=== PATIENT | male | born 1985 | race American Indian/Alaskan Native ===

== ENCOUNTER 2018-08-25 19:46 | Emergency (ER) | payer SELFPAY ==
[2018-08-25 20:18] LABS: Basophils # (Auto) 0.1 K/mm3 (0.0-0.1); Basophils % (Auto) 1.3 % (0.0-1.8); Eosinophils % (Auto) 0.6 % (0.0-4.3); Hematocrit 45.8 % (35.5-45.6); Hemoglobin 15.8 gm/dl (11.8-15.2); Lymphocytes % (Auto) 34.1 % (13.4-35.0); Mean Corpuscular HGB Conc 34 % (32-34); Mean Corpuscular Hemoglobin 30 pg (28-32); Mean Corpuscular Volume 87 fl (84-94); Monocytes # (Auto) 0.6 K/mm3 (0.0-0.8); Monocytes % (Auto) 10.9 % (0.0-7.3); Platelet Count 265 K/mm3 (140-440); Red Blood Count 5.24 M/mm3 (3.65-5.03); Red Cell Distribution Width 14.3 % (13.2-15.2)
[2018-08-25 20:29] LABS: Bilirubin,Urine NEG (Negative); Blood,Urine NEG (Negative); Color,Urine Yellow (Yellow); Mucus,Urine 1+ /HPF; Protein,Urine <15 mg/dL mg/dL (Negative); Urobilinogen,Urine < 2.0 mg/dL (<2.0)
[2018-08-25 20:40] LABS: Albumin 4.5 g/dL (3.9-5); Calcium 9.6 mg/dL (8.4-10.2)
[2018-08-25] MEDS ORDERED: ALUM-MAG HYDROX-SIMETH 200-200-20MG/5ML PO STA (22:15)
[2018-08-25] MEDS ORDERED: LIDOCAINE VISCOUS 2% PO STA (22:18)
--- NOTE | 2018-08-25 23:31 | Emergency Department Report ---
ED General Adult HPI - General Chief complaint: Sore Throat Stated complaint: THROAT PAIN/ACID REFLUX Time Seen by Provider: 08/25/18 22:00 Source: patient Mode of arrival: Ambulatory Limitations: No Limitations - History of Present Illness Initial comments: 33-year-old Haitian female with history of acid reflux been seen in the [facility] and had a scope of his throat and was found to have esophageal reflux changes to his pharynx and was started on Zantac. States he's been taking Zantac off and on for several months and is losing its effectiveness since he is having some issue landing flat sleeping because of the reflux. States refluxes also beginning to affect his work because he has call out of work because of stomach pains and and nausea as well. He reported no fever, chills, sweats, hemoptysis, hematemesis, hematochezia. No diarrhea or constipation. Does get painful areas off and on -: Gradual, week(s), month(s) Consistency: constant Improves with: none Worsens with: eating, movement Associated Symptoms: loss of appetite, nausea/vomiting. denies: confusion, chest pain, cough, shortness of breath, syncope, weakness - Related Data Previous Rx's Medication Instructions Recorded Last Taken Type Amoxicillin [Amoxicillin TAB] 875 mg PO BID #20 tablet 08/25/18 Unknown Rx Clarithromycin [Biaxin] 500 mg PO BID #20 tab 08/25/18 Unknown Rx Lidocaine Viscous 2% 15 ml MM Q4H #240 udc 08/25/18 Unknown Rx Omeprazole 40 mg PO DAILY #30 capsule. 08/25/18 Unknown Rx Allergies Allergy/AdvReac Type Severity Reaction Status Date / Time No Known Allergies Allergy Verified 08/25/18 19:52 ED Review of Systems ROS: Stated complaint: THROAT PAIN/ACID REFLUX Other details as noted in HPI Comment: All other systems reviewed and negative ED Past Medical Hx - Past Medical History Previous Medical History?: Yes Hx GERD: Yes - Surgical History Past Surgical History?: No - Social History Smoking Status: Never Smoker Substance Use Type: None - Medications Home Medications: Home Medications Medication Instructions Recorded Confirmed Last Taken Type Amoxicillin [Amoxicillin TAB] 875 mg PO BID #20 tablet 08/25/18 Unknown Rx Clarithromycin [Biaxin] 500 mg PO BID #20 tab 08/25/18 Unknown Rx Lidocaine Viscous 2% 15 ml MM Q4H #240 udc 08/25/18 Unknown Rx Omeprazole 40 mg PO DAILY #30 capsule. 08/25/18 Unknown Rx ED Physical Exam - General Limitations: No Limitations General appearance: alert, in no apparent distress - Head Head exam: Present: atraumatic, normocephalic - Eye Eye exam: Present: normal appearance, PERRL, EOMI. Absent: scleral icterus, conjunctival injection Pupils: Present: normal accommodation - ENT ENT exam: Present: normal exam, mucous membranes moist, TM's normal bilaterally - Neck Neck exam: Present: normal inspection, full ROM. Absent: lymphadenopathy, thyromegaly - Respiratory Respiratory exam: Present: normal lung sounds bilaterally. Absent: respiratory distress - Cardiovascular Cardiovascular Exam: Present: regular rate, normal rhythm. Absent: systolic murmur, diastolic murmur, rubs, gallop - GI/Abdominal GI/Abdominal exam: Present: soft, normal bowel sounds. Absent: tenderness, rebound, hyperactive bowel sounds, hypoactive bowel sounds, organomegaly, mass - Rectal Rectal exam: Present: deferred - Extremities Exam Extremities exam: Present: normal inspection, normal capillary refill. Absent: tenderness, pedal edema - Back Exam Back exam: Present: normal inspection - Neurological Exam Neurological exam: Present: alert, oriented X3 - Psychiatric Psychiatric exam: Present: normal affect, normal mood - Skin Skin exam: Present: warm, dry, intact, normal color. Absent: rash ED Course Vital Signs 08/25/18 19:51 Temperature 99.0 F Pulse Rate 69 Respiratory 16 Rate Blood Pressure 135/80 O2 Sat by Pulse 98 Oximetry ED Medical Decision Making - Lab Data Result diagrams: 08/25/18 19:57 08/25/18 19:57 - Medical Decision Making 33-year-old -H[place]ian female with chronic acid reflux. Last month the current treatment. No acute abdominal symptoms. He is tolerating all oral little discussion about appropriate follow-up and medication compliance. No acute distress. Her current, on tolerates oral. States the GI cocktail did help him significantly. Critical care attestation.: If time is entered above; I have spent that time in minutes in the direct care of this critically ill patient, excluding procedure time. ED Disposition Clinical Impression: Abdominal pain, GERD (gastroesophageal reflux disease) Disposition: TO HOME OR SELFCARE Is pt being admited?: No Does the pt Need Aspirin: No Condition: Stable Instructions: Esophageal Spasm (ED), Gastroesophageal Reflux Disease (ED), Diet for Ulcers and Gastritis (ED) Prescriptions: Amoxicillin [Amoxicillin TAB] 875 mg PO BID #20 tablet Clarithromycin [Biaxin] 500 mg PO BID #20 tab Lidocaine Viscous 2% 15 ml MM Q4H #240 udc Omeprazole 40 mg PO DAILY #30 capsule.dr Referrals: JOSE RAUL MONTESALLIANCE MD STEFANI [Primary Care Provider] - 3-5 Days [facility] [Provider Group] - 3-5 Days
[2018-08-25 23:50] VITALS: BP 124/78
== END 2018-08-25 23:50 | disposition home or self-care (01) ==
LOC: ED 19:46
DX: K21.9 Gastro-esophageal reflux disease without esophagitis (principal); Z79.2 Long term (current) use of antibiotics; Z79.899 Other long term (current) drug therapy
CPT/HCPCS: 36415; 80053; 81001; 85025

== ENCOUNTER 2018-09-09 09:19 | Emergency (ER) | payer SELFPAY ==
--- NOTE | 2018-09-09 10:02 | Emergency Department Report ---
HPI - General Chief Complaint: Shoulder Injury Time Seen by Provider: 09/09/18 09:50 - HPI HPI: 33-year-old -[place] male presents to the emergency department with left shoulder pain and concern for dislocation. He has no previous history of left shoulder injury or previous dislocation. The patient woke up this morning with the pain and difficulty with range of motion but denies any trauma. He has not taken anything for her symptoms prior to arrival. He has a past history of acid reflux. ED Past Medical Hx - Past Medical History Hx GERD: Yes - Social History Smoking Status: Never Smoker Substance Use Type: None - Medications Home Medications: Home Medications Medication Instructions Recorded Confirmed Last Taken Type Amoxicillin [Amoxicillin TAB] 875 mg PO BID #20 tablet 08/25/18 Unknown Rx Clarithromycin [Biaxin] 500 mg PO BID #20 tab 08/25/18 Unknown Rx Lidocaine Viscous 2% 15 ml MM Q4H #240 udc 08/25/18 Unknown Rx Omeprazole 40 mg PO DAILY #30 capsule. 08/25/18 Unknown Rx Ibuprofen [Motrin 800 MG tab] 800 mg PO Q8HR PRN #20 tablet 09/09/18 Unknown Rx ED Review of Systems ROS: Stated complaint: L SHOULDER PAIN Other details as noted in HPI Comment: All other systems reviewed and negative Constitutional: denies: chills, fever Cardiovascular: denies: chest pain, palpitations Gastrointestinal: denies: abdominal pain, nausea Musculoskeletal: arthralgia, myalgia. denies: joint swelling Neurological: denies: numbness, paresthesias Physical Exam - Physical Exam Vital Signs: Vital Signs 09/09/18 09:29 Temperature 99.3 F Pulse Rate 63 Respiratory 16 Rate Blood Pressure 125/69 O2 Sat by Pulse 98 Oximetry Physical Exam: GENERAL: The patient is well-developed well-nourished. HENT: Normocephalic. Atraumatic. Patient has moist mucous membranes. EYES: Extraocular motions are intact. NECK: Supple. Trachea is midline. CHEST/LUNGS: Clear to auscultation. There is no respiratory distress noted. HEART/CARDIOVASCULAR: Regular. There is no tachycardia. There is no murmur. ABDOMEN: There is no abdominal distention. SKIN: Skin is warm and dry. NEURO: The patient is awake, alert, and oriented. The patient is cooperative. The patient has normal speech. MUSCULOSKELETAL: There is some tenderness to palpation to the left anterior and lateral shoulder but no obvious deformity. There is some mild decreased range of motion secondary to pain. Radial pulse +2 over 4 and capillary refill less than 2 seconds to the affected left upper extremity. ED Course Vital Signs 09/09/18 09:29 Temperature 99.3 F Pulse Rate 63 Respiratory 16 Rate Blood Pressure 125/69 O2 Sat by Pulse 98 Oximetry ED Medical Decision Making - Radiology Data Radiology results: image reviewed interpreted by me: X-ray of the left shoulder does not show any fracture, dislocation or any acute process. - Medical Decision Making This patient presents to the emergency department with left shoulder pain that occurred while he was sleeping, without any known trauma. He has some reproducible tenderness to palpation and some mild decreased range of motion secondary to pain. An x-ray was done that does not show any fracture, dislocation but just shows some calcifications along will would be the tendons of the rotator cuff and may show some calcific tendinitis. The patient is neurovascularly intact. He was placed in an arm sling and given a referral for orthopedist for follow-up. He will return to the ER with any worsening of his symptoms or any acute distress. Dictation software was used for certain portions of this chart and therefore there may be some dictation errors within these notes. - Differential Diagnosis fracture, dislocation, sprain, tendinitis, bursitis Critical Care Time: No Critical care attestation.: If time is entered above; I have spent that time in minutes in the direct care of this critically ill patient, excluding procedure time. ED Disposition Clinical Impression: Tendonitis of shoulder, left Left shoulder pain Qualifiers: Chronicity: acute Qualified Code(s): M25.512 - Pain in left shoulder Disposition: DC-01 TO HOME OR SELFCARE Is pt being admited?: No Condition: Stable Instructions: Calcific Tendinitis (ED), Arthralgia (ED) Additional Instructions: Please follow up with a orthopedist in the next few days. I have given you a referral for a local orthopedist, Dr. Shore. Return to the emergency Department with any worsening of your symptoms or any acute distress. Prescriptions: Ibuprofen [Motrin 800 MG tab] 800 mg PO Q8HR PRN #20 tablet PRN Reason: Pain , Severe (7-10) Referrals: JUDSON SHORE MD [Staff Physician] - 2-3 Days Time of Disposition: 10:49
--- NOTE | 2018-09-09 10:36 | XRay Report ---
LEFT SHOULDER 3 VIEWS INDICATION / CLINICAL INFORMATION: trauma, pain dislocation LT SHOULDER. COMPARISON: None available. FINDINGS: No fracture or dislocation is seen within the left shoulder. Tiny linear calcification is seen overly ing the distal rotator cuff tendon characteristic for calcific tendinitis/hydroxyapatite deposition d isease. Signer Name: Toby Foy MD Signed: 09/09/2018 10:32 AM Workstation Name: [id number]
[2018-09-09] MEDS ORDERED: TORADOL IM ONE (10:47)
[2018-09-09 11:04] VITALS: BP 135/88
== END 2018-09-09 11:26 | disposition home or self-care (01) ==
LOC: ED 09:19
DX: M75.92 Shoulder lesion, unspecified, left shoulder (principal); K21.9 Gastro-esophageal reflux disease without esophagitis; Z79.899 Other long term (current) drug therapy
CPT/HCPCS: 73030; 96372; 99283; J1885

== ENCOUNTER 2018-12-17 10:52 | Emergency (ER) | payer SELFPAY ==
--- NOTE | 2018-12-17 11:39 | Emergency Department Report ---
Blank Doc - Documentation Documentation: 33-year-old male that presents with right hand lac after punching glass. This initial assessment/diagnostic orders/clinical plan/treatment(s) is/are subject to change based on patient's health status, clinical progression and re- assessment by fellow clinical providers in the ED. Further treatment and workup at subsequent clinical providers discretion. Patient/guardians urged not to elope from the ED as their condition may be serious if not clinically assessed and managed. Initial orders include: 1- Patient sent to [facility] for further evaluation and treatment 2- xrays
[2018-12-17 11:40] VITALS: BP 123/70
[2018-12-17] MEDS ORDERED: LIDOCAINE-MPF (1%) 10 MG/1 ML VIAL 5 ML INFILTRATI ONE (12:10)
--- NOTE | 2018-12-17 12:14 | XRay Report ---
RIGHT HAND, 3 VIEWS INDICATION: hand lac r/o foreign body. COMPARISON: None. IMPRESSION: Normal bone mineralization. No acute osseous findings or joint pathology. Soft tissue i njury near the base of the fourth and fifth digits is suspected. A punctate radiodensity is identifie d in the soft tissues between the fourth and fifth digit which is best demonstrated on the AP view. P lease correlate with the image and the patient. This could represent a tiny foreign body. Signer Name: Bryn Bell Jr, MD Signed: 12/17/2018 12:09 PM Workstation Name: [id number]
[2018-12-17] MEDS ORDERED: SODIUM CHLORIDE 0.9% IRR 500 ML BOTTLE IR ONE (12:27)
[2018-12-17] MEDS ORDERED: SODIUM CHLORIDE IRRI 500 ML 500 ML IR ONE (12:28)
[2018-12-17] MEDS ORDERED: TETANUS,DIPH,PERTUSS(ACELL) VACCINE 0.5 ML SYRINGE IM ONE (12:47)
--- NOTE | 2018-12-17 12:47 | Emergency Department Report ---
HPI - General Chief Complaint: Wound/Laceration Time Seen by Provider: 12/17/18 11:38 - HPI HPI: 33-year-old -[place]egalese male, who is right-hand dominant, presents to the emergency department with a laceration to the right hand as well as some right h and pain after punching through some glass. He is not sure if he is up-to-date with his tetanus vaccination. He has not taken anything for her symptoms prior to presentation. ED Past Medical Hx - Past Medical History Previous Medical History?: Yes Hx GERD: Yes - Surgical History Past Surgical History?: No - Social History Smoking Status: Current Every Day Smoker Substance Use Type: None - Medications Home Medications: Home Medications Medication Instructions Recorded Confirmed Last Taken Type Amoxicillin [Amoxicillin TAB] 875 mg PO BID #20 tablet 08/25/18 Unknown Rx Clarithromycin [Biaxin] 500 mg PO BID #20 tab 08/25/18 Unknown Rx Lidocaine Viscous 2% 15 ml MM Q4H #240 udc 08/25/18 Unknown Rx Omeprazole 40 mg PO DAILY #30 capsule. 08/25/18 Unknown Rx Ibuprofen [Motrin 800 MG tab] 800 mg PO Q8HR PRN #20 tablet 09/09/18 Unknown Rx Sulfamethoxazole/Trimethoprim 1 each PO BID #14 tablet 12/17/18 Unknown Rx [Bactrim DS TAB] ED Review of Systems ROS: Stated complaint: CUT RT HAND Other details as noted in HPI Comment: All other systems reviewed and negative Constitutional: denies: chills, fever Musculoskeletal: arthralgia Skin: other (laceration) Physical Exam - Physical Exam Vital Signs: Vital Signs 12/17/18 11:38 Temperature 98.5 F Pulse Rate 71 Respiratory 18 Rate Blood Pressure 123/70 O2 Sat by Pulse 97 Oximetry Physical Exam: GENERAL: The patient is well-developed well-nourished. HENT: Normocephalic. Atraumatic. Patient has moist mucous membranes. EYES: Extraocular motions are intact. NECK: Supple. Trachea is midline. CHEST/LUNGS: Clear to auscultation. There is no respiratory distress noted. HEART/CARDIOVASCULAR: Regular. There is no tachycardia. There is no murmur. ABDOMEN: Abdomen is soft, nontender. Patient has normal bowel sounds. There is no abdominal distention. SKIN: There is a laceration and skin avulsion to the right dorsal hand between the fourth and fifth fingers. There appears to be some volume loss. There is a small patch or flap of skin that does not appear to be able to cover the exposed subdermal tissue. There is some venous oozing of blood. No visible tendons, ligaments or bone. NEURO: The patient is awake, alert, and oriented. The patient is cooperative. The patient has no focal neurologic deficits. Normal speech. MUSCULOSKELETAL: There is tenderness to palpation to the right dorsal hand with the patient has a laceration and skin avulsion. Radial pulse +2 over 4 and capillary refill less than 2 seconds to the affected right hand and wrist. There is no limitation range of motion. ED Course Vital Signs 12/17/18 11:38 Temperature 98.5 F Pulse Rate 71 Respiratory 18 Rate Blood Pressure 123/70 O2 Sat by Pulse 97 Oximetry - Laceration /Wound Repair Right Hand Wound Location: upper extremity (right dorsal hand between the fourth and fifth fingers) Wound Length (cm): 5 (actual size is difficult as there is a large skin avulsion with volume loss) Wound's Depth, Shape: irregular, flap Wound Explored: clean Irrigated w/ Saline (ccs): 500 Anesthesia: 1% Lidocaine Volume Anesthetic (ccs): 2 Wound Repaired With: sutures Suture Size/Type: 5:0, proline Number of Sutures: 3 Sterile Dressing Applied?: Yes ED Medical Decision Making - Radiology Data Radiology results: image reviewed interpreted by me: X-ray of the right hand does not show any fracture, dislocation or any acute process. There is a very small punctate radiopaque object that could be a serious small piece of glass - Medical Decision Making Patient presents with some right hand pain and a laceration to the dorsal right hand. It is actually more of a skin avulsion with volume loss. There is 1 small strip of skin, a flap, that remains but it is not enough skin to cover the entire exposed subdermal tissue. 3 simple interrupted sutures were used to try and approximate that area of tissue. However distal possible the tissue there will desiccate and will not be salvageable. The patient understands that he may need to see a orthopedist regarding the hand pain, and may need to see a plastic surgeon regarding the skin avulsion. The area was cleaned with 500 mL of normal saline and appeared to be a clean wound. No visible signs of the punctate radiopaque object, possibly class, that was seen on the x-ray. The patient has full range of motion of the hand and fingers and there does not appear to be any signs of tendon or ligament injury. The patient has been placed in a OCL splint along with nonadhesive and sterile dressings. He was given the referrals for primary care and the orthopedist. He is neurovascularly intact. He will return to the ER with any worsening of his symptoms or any acute distress. - Differential Diagnosis head fracture, skin avulsion, laceration, contusion Critical Care Time: No Critical care attestation.: If time is entered above; I have spent that time in minutes in the direct care of this critically ill patient, excluding procedure time. ED Disposition Clinical Impression: Laceration of right hand Qualifiers: Encounter type: initial encounter Foreign body presence: unspecified Qualified Code(s): S61.411A - Laceration without foreign body of right hand, initial encounter Injury of right hand Qualifiers: Encounter type: initial encounter Qualified Code(s): S69.91XA - Unspecified injury of right wrist, hand and finger(s), initial encounter Disposition: TO HOME OR SELFCARE Is pt being admited?: No Condition: Stable Instructions: Suture Care (ED), Laceration (ED) Additional Instructions: I have given you a referral for a local orthopedist, Dr. Doty, to follow up regarding your right hand injury. I have also given you a referral for a local plastic surgeon, Dr. colvin, to follow up regarding the skin avulsion to your right hand. Take the antibiotics as prescribed. Return to the emergency Department with any signs or symptoms of infection such as increased pain, swelling of the hand, development of fever, discharge of pus, surrounding redness, or return with any acute distress. Prescriptions: Sulfamethoxazole/Trimethoprim [Bactrim DS TAB] 1 each PO BID #14 tablet Referrals: PRIMARY MD YOKASTA [Primary Care Provider] - 2-3 Days JUDSON DOTY MD [Staff Physician] - 2-3 Days JEFFERSON COLVIN JR, MD [Staff Physician] - 2-3 Days Time of Disposition: 12:49
[2018-12-17] MEDS ORDERED: SULFAMETHOXAZOLE/TRIMETHOPRIM 800/160MG DS TAB PO ONE (12:48)
== END 2018-12-17 12:49 | disposition home or self-care (01) ==
LOC: ED 10:52
DX: S61.411A Laceration without foreign body of right hand, initial encounter (principal); F17.200 Nicotine dependence, unspecified, uncomplicated; K21.9 Gastro-esophageal reflux disease without esophagitis; W25.XXXA Contact with sharp glass, initial encounter; Y93.89 Activity, other specified; Y92.89 Other specified places as the place of occurrence of the external cause; Y99.8 Other external cause status
CPT/HCPCS: 90471; 90715

== ENCOUNTER 2019-01-06 02:41 | Emergency (ER) | payer SELFPAY ==
[2019-01-06 03:20] VITALS: BP 137/79
--- NOTE | 2019-01-06 08:14 | Emergency Department Report ---
Suture/Staple Removal - HPI Chief Complaint: Wound/Laceration Stated Complaint: POSS INFECTED RT HAND Time Seen by Provider: 01/06/19 07:16 When Sutures or [place] Placed: >14 Days Ago Wound Location: right hand ED Review of Systems ROS: Stated complaint: POSS INFECTED RT HAND Other details as noted in HPI Constitutional: denies: chills, fever Eyes: denies: eye pain, eye discharge, vision change ENT: denies: ear pain, throat pain Respiratory: denies: cough, shortness of breath, wheezing Cardiovascular: denies: chest pain, palpitations Endocrine: no symptoms reported Gastrointestinal: denies: abdominal pain, nausea, diarrhea Genitourinary: denies: urgency, dysuria Musculoskeletal: denies: back pain, joint swelling, arthralgia Skin: denies: rash, lesions Neurological: denies: headache, weakness, paresthesias Psychiatric: denies: anxiety, depression Hematological/Lymphatic: denies: easy bleeding, easy bruising ED Past Medical Hx - Past Medical History Previous Medical History?: Yes Hx GERD: Yes - Surgical History Past Surgical History?: No - Social History Smoking Status: Never Smoker - Medications Home Medications: Home Medications Medication Instructions Recorded Confirmed Last Taken Type Amoxicillin [Amoxicillin TAB] 875 mg PO BID #20 tablet 08/25/18 Unknown Rx Clarithromycin [Biaxin] 500 mg PO BID #20 tab 08/25/18 Unknown Rx Lidocaine Viscous 2% 15 ml MM Q4H #240 udc 08/25/18 Unknown Rx Omeprazole 40 mg PO DAILY #30 capsule. 08/25/18 Unknown Rx Ibuprofen [Motrin 800 MG tab] 800 mg PO Q8HR PRN #20 tablet 09/09/18 Unknown Rx Sulfamethoxazole/Trimethoprim 1 each PO BID #14 tablet 12/17/18 Unknown Rx [Bactrim DS TAB] Sulfamethoxazole/Trimethoprim 1 each PO BID #14 tablet 01/06/19 Unknown Rx [Bactrim DS TAB] Suture Removal Exam - Exam General: Vital signs noted. No distress. Alert and acting appropriately. Wound: Yes Drainage, No Pathologic Erythema, No Tenderness, No Pus, No Wound Dehiscence Other Systems: All other systems reviewed and are unremarkable. ED Course Vital Signs 01/06/19 03:03 Temperature 99.4 F Pulse Rate 82 Respiratory 18 Rate Blood Pressure 137/79 O2 Sat by Pulse 96 Oximetry - Reevaluation(s) Reevaluation #1: 01/06/19 08:11 Patient is speaking in full sentences with no signs of distress noted. ED Recheck MDM - Medical Decision Making This is a 33-year-old male that presents with suture removal. He is stable and was examined by me. The area has been cleaned and a sterile dressing has been applied. Total of 3 sutures has been removed and patient tolerated well. No signs of wound dehiscence. Patient does have some drainage. Patient stated he did not take his antibiotics. Patient will be discharged with Bactrim and was instructed that it is free/low-cost and [facility] and that he must take it. There is no joint abscess. There is no induration or swelling. Patient was referred to Follow-up with a primary care doctor in 3-5 days or if symptoms worsen and continue return to emergency room as soon as possible. At time of discharge, the patient does not seem toxic or ill in appearance. No acute signs of distress noted. Patient agrees to discharge treatment plan of care. No further questions noted by the patient. Critical care attestation.: If time is entered above; I have spent that time in minutes in the direct care of this critically ill patient, excluding procedure time. ED Disposition Clinical Impression: Cellulitis of hand, Visit for suture removal Disposition: - TO HOME OR SELFCARE Is pt being admited?: No Does the pt Need Aspirin: No Condition: Stable Instructions: Suture Removal (ED) Additional Instructions: Follow-up with a primary care doctor in 3-5 days or if symptoms worsen and continue return to emergency room as soon as possible. It is very important that you take antibiotics that is prescribed to today. Prescriptions: Sulfamethoxazole/Trimethoprim [Bactrim DS TAB] 1 each PO BID #14 tablet Referrals: PRIMARY MD YOKASTA [Primary Care Provider] - 3-5 Days NEGRO PACHECO MD [Staff Physician] - 3-5 Days [facility] [Outside] - 3-5 Days [facility] [Outside] - 3-5 Days
== END 2019-01-06 08:29 | disposition home or self-care (01) ==
LOC: ED 02:41
DX: L03.113 Cellulitis of right upper limb (principal); K21.9 Gastro-esophageal reflux disease without esophagitis
CPT/HCPCS: 99282